=== PATIENT | female | born 1955 | race Caucasian/White ===

== ENCOUNTER 2022-01-08 06:01 | Day surgery (SDC) | payer MEDICARE ==
[2022-01-05 08:30] VITALS: BMI 33.2
[~2022-01-08 06:01] MED LIST: TRANEXAMIC ACID IN NACL,ISO-OS 1,000 MG in SALINE 1 100ML.BAG IVPB PRN
[2022-01-08] MEDS ORDERED: MIDAZOLAM 2 MG/2 ML VIAL IV PRN (06:06)
[2022-01-08] MEDS ORDERED: ONDANSETRON 4 MG/2 ML VIAL IVP ONE (06:06)
[2022-01-08] MEDS ORDERED: DEXAMETHASONE SOD PHOSPHATE 4 MG/ML 1 ML VIAL IV ONE (06:06)
[2022-01-08] MEDS ORDERED: LACTATED RINGERS 1,000 ML IV SCH (06:06)
[2022-01-08 06:43] LABS: Glucose,Whole Blood 141 mg/dL (75-99)
[2022-01-08] MEDS ORDERED: HYDROmorphone 0.5 MG/0.5 ML SYRINGE IVP PRN (07:00)
[2022-01-08] MEDS ORDERED: MIDAZOLAM 2 MG/2 ML VIAL IVP ONE (07:04)
[2022-01-08] MEDS ORDERED: PROPOFOL 10 MG/ML 20 ML VIAL IV ONE (07:40)
[2022-01-08] MEDS ORDERED: MIDAZOLAM 2 MG/2 ML VIAL ONE (07:40)
[2022-01-08] MEDS ORDERED: NEOSTIGMINE 1 MG/ML 10 ML VIAL ONE (07:40)
[2022-01-08] MEDS ORDERED: TRANEXAMIC ACID IN NACL,ISO-OS 1,000 MG/100 ML BAG ONE (07:40)
[2022-01-08] MEDS ORDERED: ROCURONIUM 10 MG/ML (5 ML VIAL) IV ONE (07:40)
[2022-01-08] MEDS ORDERED: LIDOCAINE 1% INJ 10MG/ML (20 ML MDV) ONE (07:40)
[2022-01-08] MEDS ORDERED: SUCCINYLCHOLINE CHLORIDE 100 MG/5 ML SYR IV ONE (07:40)
[2022-01-08] MEDS ORDERED: fentaNYL (PF) 50 MCG/ML 2 ML AMP ONE (07:40)
[2022-01-08] MEDS ORDERED: PHENYLEPHRINE-0.9% NACL SYG 1,000 MCG/10 ML SYRINGE ONE (07:40)
[2022-01-08] MEDS ORDERED: GLYCOPYRROLATE 0.2 MG/ML 2 ML VIAL ONE (07:40)
[2022-01-08] MEDS ORDERED: ROPIVACAINE 5 MG/ML 30 ML VIAL ONE (07:40)
[2022-01-08] MEDS ORDERED: LACTATED RINGERS 1,000 ML IV ONE (09:04)
--- NOTE | 2022-01-08 09:06 | P.OP ---
Date of Procedure: 01/08/22 Procedure(s) Performed: PREOPERATIVE DIAGNOSES: 1. Left shoulder subscapularis tear POSTOPERATIVE DIAGNOSES: 1. Left shoulder subscapularis tear PROCEDURES PERFORMED: 1. Left shoulder open subscapularis repair ANESTHESIA: Gen. PLANT SUPERVISOR: Kevin Dhaliwal PA-C (assistance with exposure, hemostasis, retraction, fixation, closure, dressing, splint) COMPLICATIONS: None ESTIMATED BLOOD LOSS: 25 mL. DISPOSITION: To post-anesthesia care unit INDICATIONS: Farideh is a 66 year old femlae who sustained a subscapularis tear a few weeks ago. MRI has shown complete subscapularis rupture. The patient, after counseling on both conservative and surgical options, chooses to proceed with open subscapularis repair. I have discussed this surgery in detail, as well as the potential risks and complications including, but not limited to: Bleeding, infection, scarring, discomfort, blood vessel and/or nerve damage, need for further surgery, stiffness, rerupture, persistence or worsening of problems, blood clot, pulmonary embolism, anesthesia risks, , loss of use of the extremity, and other risks. Patient is aware these risks and wishes to proceed with surgery. The consent form has been signed. PROCEDURE: After appropriate consent was obtained, the patient was taken to the operating room placed in the supine position. Anesthesia was initiated, and after confirmation of adequate anesthesia, the patient was carefully positioned. Care was taken to make sure that all pressure points were adequately padded. Patient was placed into the beachchair position with approximately 30 of elevation of the head of the bed. Head was secured with Coban. Prepping and draping were completed in the usual aseptic fashion using ChloraPrep. Timeout was called, confirming patient identity, side, procedure, and administration of antibiotics. Deltopectoral incision was created from just at the coracoid process down to near the deltoid insertion for total length of approximately 4.5 inches. Incision was deepened down through skin into subcu tissues and down to muscular fascia. Meticulous hemostasis was accomplished using cautery. Muscular fascia was encountered of the deltoid and this was followed medially until the deltopectoral interval was located. Deltopectoral interval was exposed and the vein was carefully retracted medially along with the pectoralis. Deltoid was mobilized on its deep surface using finger dissection and the area just adjacent to the strap muscles was incised for exposure of the subscapularis tendon. The subscapularis tendon had completely detached from its bony insertion just medial to the bicipital groove. The biceps tendon was located and noted to be completely anatomically oriented and was left undisturbed for the entire case. The subscapularis tendon was tagged with 2 #2 Ethibond sutures for control of the tendon. The supraspinatus and infraspinatus tendons were noted to be completely intact and normal. The area just lateral to the articular surface at the subscapularis footprint was prepared by removing organizing soft tissue in this region down to bone and noting that the bone quality was somewhat poor in this individual. The area was very lightly debrided to encourage a healing response once the tendon had been repaired. The subscapularis tendon was able to be easily mobilized to an anatomic location. The tendon was freshened using sharp dissection. The tendon was then repaired as follows. Using a scorpion suture passer, 3 suture tapes from [employer] were used in reverse mattress fashion along the edge of the subscapularis tendon. Next, tension was held on the stay sutures and a 4.5 mm swivel lock anchor from [employer] was deployed in the area just medial to the biceps tendon within the lesser tuberosity. The top 2 sutures were then placed into the anchor and the anchor was deployed and the police pilot hole. Suture length was optimized to maximize apposition of the tendon to the bone. In similar fashion, a second 4.5 mm swivel lock anchor was deployed just inferior to the first and the remaining 2 sets of sutures were passed through this anchor and the anchor was deployed into the lower portion of the lesser tuberosity. Excellent apposition of the tendon to bone and the repair was very stable just with these 3 sutures alone. Further reinforcement of the repair was performed using the stay sutures within the anchors and a few 0 Vicryl sutures in the remnant of the subscapularis. The sutures deployed were a combination of simple suture passes as well as modified Francesco-Hema passes as possible. The shoulder was then taken through range of motion gently observing the repair and noting that the repair was very stable. External rotation with the arm at the side was to approximately 60 degrees before significant tension on the repair. Thorough irrigation was performed using normal saline; hemostasis was obtained using electrocautery. Closure was performed of the deltopectoral interval with loose 0 Vicryl sutures to lightly appose the muscles. 2 layer subcu cutaneous closure was performed followed by skin closure with 3-0 Monocryl suture and cyanoacrylate top dressing. Final sterile dressing was applied and held into position. Sling was then applied. Patient tolerated the procedure well and taken to recovery room in stable condition. Sponge and needle counts were correct.
[2022-01-08 09:32] VITALS: TEMP 98
[2022-01-08 10:01] VITALS: RESP 17
[2022-01-08 10:35] VITALS: BP 120/78; PULSE 88
--- NOTE | 2022-01-08 14:40 | P.ANPRN ---
Procedure Note - Anesthesia - Nerve Block Performed Left Interscalene Time Out Performed: Yes (07:03) Date of Procedure: 01/08/22 Procedure Start Time: : Procedure Stop Time: :12 Location of Patient: PreOp Indication: Acute Post-Operative Pain, Requested by Surgeon (Dr Nails) Sedation Type: Sedate with meaningful contact maintained Preparation: Sterile Prep Position: Supine Catheter: None Needle Types: Pajunk Needle Gauge: Other (see comment) (22g) Ultrasound used to visualize needle placement: Yes Ultrasound used to observe medication spread: Yes Injectate: 0.5% Ropivacaine (see comment for volume) (20cc) Blood Aspirated: No Pain Paresthesia on Injection Noted: No Resistance on Injection: Normal Image Stored and Saved: Yes Events: Uneventful and Well Tolerated
== END 2022-01-08 11:00 | disposition home or self-care (01) ==
LOC: OR 06:01
PROVIDERS: ATTEND Orthopaedic Surgery
DX: S46.012A Strain of muscle(s) and tendon(s) of the rotator cuff of left shoulder, initial encounter (principal)
CPT/HCPCS: 29827; 64415; 76942; C1713 ×2; J2250; J2710; J0690; J2405; J2001; J3010; J2795; J2370; J0330; J2704